=== PATIENT | female | born 2000 | race Caucasian/White ===

== ENCOUNTER 2018-08-08 11:57 | Emergency (ER) | payer BC ==
[2018-08-08 13:38] LABS: ABS Basophils 0 10^3/ul (0-0.2); ABS Eosinophils 0.1 10^3/ul (0-0.6); ABS Lymphocytes 1.6 10^3/ul (1.0-4.8); ABS Monocytes 0.8 10^3/ul (0-0.8); ABS Neutrophils 2.4 10^3/ul (1.5-7.7); ABS Nucleated RBC 0 10^3/ul; Eosinophil % 2.7 % (0-6); Hematocrit 41 % (35-47); Hemoglobin 13.8 g/dl (12.0-16.0); Lymphocyte % 33.2 % (25-47); Mean Corpuscular HGB Conc 34 g/dl (31-36); Mean Corpuscular Hemoglobin 30 pg (27-31); Mean Corpuscular Volume 90 fL (80-97); Mean Platelet Volume 8.9 um3 (7.4-10.4); Nucleated Red Blood Cells % 0.1; Platelet Count 207 10^3/ul (150-450); Red Blood Count 4.55 10^6/ul (4.00-5.40); Red Cell Distribution Width 13 % (10.5-15)
[2018-08-08] MEDS ORDERED: NS 0.9% 1000 ML* 1,000 ML IV ONE (14:05)
--- NOTE | 2018-08-08 14:16 | ED ---
Abdominal Pain/Female - HPI Summary HPI Summary: Patient presents with 4 day history of GI symptoms. She reports she's been taking Bactrim for right axillary staph infection. This antibiotic was started 10 days ago. Her infection here as cleared and antibiotic has been completed. She reports however Tuesday she ate okay around 1900 as well as drink alcohol. She took her Bactrim later in the evening and at 2 AM in the morning she developed nausea, vomiting and diarrhea. He was seen at [facility] yesterday and received IV fluids as well as loperamide. She has not vomited since however continues to feel nauseous. Her diarrhea subsided as well however today it returned despite taking loperamide again at 7 this morning. She is now reporting hematochezia as well. She denies rectal pain however does report abdominal discomfort of 3 out of 10 that cranks up to 7 out of 10 when her cramps start in her lower abdomen. She denies focal pain, urinary symptoms , vaginal symptoms. She denies fevers, chills, headache, chest pain, shortness of breath but she does feel weak in general. She's been able to drink water and chicken broth. She denies sick contacts. - History of Current Complaint Chief Complaint: EDGIBleed Stated Complaint: VOMITING/DIARRHEA/BLOOD IN STOOL Time Seen by Provider: 08/08/18 13:50 Hx Obtained From: Patient, Family/Help Desk Agent - female friend Pain Intensity: 0 Allergies/Adverse Reactions: Allergies Allergy/AdvReac Type Severity Reaction Status Date / Time doxycycline Allergy Rash Verified 08/08/18 12:13 PMH/Surg Hx/FS Hx/Imm Hx Previously Healthy: Yes Endocrine/Hematology History: Denies: Hx Anticoagulant Therapy, Hx Blood Disorders, Hx Diabetes, Hx Thyroid Disease, Hx Anemia, Autoimmune Disease Respiratory History: Denies: Hx Asthma GI History: Denies: Hx Cirrhosis, Hx Crohn's Disease, Hx Diverticulosis, Hx Gall Bladder Disease, Hx Gastroesophageal Reflux Disease, Hx Gastrointestinal Bleed, Hx Hiatal Hernia, Hx Irritable Bowel, Hx Ulcer Infectious Disease History: No Infectious Disease History: Denies: Traveled Outside the [place] in Last 30 Days - Family History Known Family History: Positive: None - Social History Occupation: Student Lives: Dormitory/Roommates Review of Systems Positive: Fatigue - feels wiped out. Negative: Fever, Chills Eyes: Negative ENT: Negative Cardiovascular: Negative Respiratory: Negative Positive: Abdominal Pain, Diarrhea, Nausea. Negative: Vomiting Genitourinary: Negative Negative: burning, dysuria, discharge, frequency, flank pain, hematuria, incontinence, pain, urgency Musculoskeletal: Negative Skin: Negative Neurological: Negative Psychological: Normal All Other Systems Reviewed And Are Negative: Yes Physical Exam Triage Information Reviewed: Yes Vital Signs On Initial Exam: Initial Vitals Temp Pulse Resp BP Pulse Ox 96.8 F 83 17 117/71 100 08/08/18 12:09 08/08/18 12:09 08/08/18 12:09 08/08/18 12:09 08/08/18 12:09 Vital Signs Reviewed: Yes Appearance: Positive: No Pain Distress, Ill-Appearing - mild - good color, Thin Skin: Positive: Warm, Skin Color Reflects Adequate Perfusion, Dry - no rash Head/Face: Positive: Normal Head/Face Inspection Eyes: Positive: Normal, EOMI, Conjunctiva Clear - anicteric sclera ENT: Positive: Normal ENT inspection, Hearing grossly normal, Pharynx normal - mucosa moist. Negative: Nasal congestion, Nasal drainage Neck: Positive: Supple, Nontender Respiratory/Lung Sounds: Positive: Clear to Auscultation, Breath Sounds Present. Negative: Decreased Breath Sounds, Rales, Rhonchi, Wheezes Cardiovascular: Positive: Normal, RRR, S1, S2 Abdomen Description: Positive: No Organomegaly, Soft, Distended, Other: - mild TTP over general lower ab, worse in central area - no rebound tenderness; rectal :?. Negative: CVA Tenderness (R), CVA Tenderness (L), Hernia @ Bowel Sounds: Positive: Present Pelvic Exam: Positive: Other - deferred Musculoskeletal: Positive: Normal, Strength/ROM Intact Neurological: Positive: Normal, Sensory/Motor Intact, Alert, Oriented to Person Place, Time, CN Intact II-III Psychiatric: Positive: Normal Diagnostics - Vital Signs Vital Signs Temp Pulse Resp BP Pulse Ox 08/08/18 12:09 96.8 F 83 17 117/71 100 - Laboratory Lab Results: Lab Results 08/08/18 08/08/18 Range/Units 13:30 13:30 WBC 5.0 (3.5-10.8) 10^3/ul RBC 4.55 (4.00-5.40) 10^6/ul Hgb 13.8 (12.0-16.0) g/dl Hct 41 (35-47) % MCV 90 (80-97) fL MCH 30 (27-31) pg MCHC 34 (31-36) g/dl RDW 13 (10.5-15) % Plt Count 207 (150-450) 10^3/ul MPV 8.9 (7.4-10.4) um3 Neut % (Auto) 48.1 (38-83) % Lymph % (Auto) 33.2 (25-47) % [place] % (Auto) 15.3 H (0-7) % Eos % (Auto) 2.7 (0-6) % Baso % (Auto) 0.7 (0-2) % Absolute Neuts (auto) 2.4 (1.5-7.7) 10^3/ul Absolute Lymphs (auto) 1.6 (1.0-4.8) 10^3/ul Absolute Monos (auto) 0.8 (0-0.8) 10^3/ul Absolute Eos (auto) 0.1 (0-0.6) 10^3/ul Absolute Basos (auto) 0 (0-0.2) 10^3/ul Absolute Nucleated RBC 0 10^3/ul Nucleated RBC % 0.1 Sodium 139 (135-145) mmol/L Potassium 3.9 (3.5-5.0) mmol/L Chloride 104 (101-111) mmol/L Carbon Dioxide 27 (22-32) mmol/L Anion Gap 8 (2-11) mmol/L BUN 5 L (6-24) mg/dL Creatinine 0.71 (0.51-0.95) mg/dL Est GFR ( Amer) 128.3 (>60) Est GFR (Non-Af Amer) 106.0 (>60) BUN/Creatinine Ratio 7.0 L (8-20) Glucose 89 (70-100) mg/dL Calcium 9.2 (8.6-10.3) mg/dL Magnesium Pending Total Bilirubin 0.30 (0.2-1.0) mg/dL AST 21 (13-39) U/L ALT 13 (7-52) U/L Alkaline Phosphatase 44 (34-104) U/L C-Reactive Protein 13.85 H (<8.01) mg/L Total Protein 6.6 (6.4-8.9) g/dL Albumin 4.2 (3.2-5.2) g/dL Globulin 2.4 (2-4) g/dL Albumin/Globulin Ratio 1.8 (1-3) Lipase 10 L (11.0-82.0) U/L TSH Pending Beta HCG, Quant Pending Result Diagrams: 08/08/18 13:30 08/08/18 13:30 Lab Statement: Any lab studies that have been ordered have been reviewed, and results considered in the medical decision making process. Re-Evaluation - Re-Evaluation First Eval Change: Improved - pt's ab pain almost completely resolved. No nausea or vomiting and bowel movements/cramping reduced - feels much better since here. Tried drinking applejuice and reports it went down very well w/o pain, nausea, or urge to move bowels. Abdominal Pain Fem Course/Dx - Course Course Of Treatment: Pt presents w/ 4 days h/o alternating N/V/D. This started about 5 hours after eating poke (raw fish) and a couple of hours after taking bactrim with ETOH. Additionally she admits she was camping a couple of weeks ago and could have exposure to fresh water. She has been gradually improving over the past 2 days but came in today as she had blood in her stool. This was confirmed on stool occult test - rectal exam neg for hemorrhoids, active lower GI bleed. Ab cramping, pain and urge to move bowels resolved after IV fluids only. She was then able to tolerate PO applejuice w/o recurrence of sx. Discussed how a CT scan may be beneficial in providing more information such as colitis but with normal labs and improved sx, we decided to refrain from radiation. We will also refrain from anbx as she may have salmonella and anbx could make this worse (current presenation does not warrant anbx - reduced BM's , no fever, no vomiting). Will call pt w/ stool cx results when they return. In the meantime recommend fluids only and advanving diet as tolerated to BRAT then low residual foods. Discussed importance of monitoring for danger s/sx - pt agrees to return to ED should these present. NOTE: based on labs and vital signs, pt does not appear to have acute/significant hemorrhage as these are WNL. - Diagnoses Provider Diagnoses: Gastroenteritis, Colitis Discharge - Sign-Out/Discharge Documenting (check all that apply): Patient Departure - Discharge Plan Condition: Stable Disposition: HOME Patient Education Materials: Gastroenteritis (ED), Dehydration (ED), Colitis ( ED) Referrals: [facility] - Alpesh VALENCIA [Medical Doctor] - Additional Instructions: The definitive cause of your symptoms was not identified however since her symptoms are improving and diarrhea bouts are reducing, it was decided more aggressive intervention was not necessary today. A stool culture has been collected and results will be back in the next 24-48 hours. He will receive a phone call these are positive however please feel free to call if you've not heard anything in 48 hours. You have been encouraged to rehydrate with water, Gatorade, soup broth, etc. If he tolerates these well, he may advance her diet tomorrow to bananas, rice, applesauce and toast which should also help to further former stools. Avoid stimulants such as coffee, tea, ice tea, soda, chocolate, nicotine, alcohol. Based on your history it is recommended that you avoid Imodium moving forward in the event to do have a bacterial infection as Imodium would trap this in your intestines. We also discussed pros and cons of starting an antibiotic and have decided to refrain until further testing is revealed. *If you develop return of diarrheal frequency, abdominal cramping and pain, vomiting, difficulty eating or drinking, fevers or chills, worsening of bloody stool, return to the emergency department. - Billing Disposition and Condition Condition: STABLE Disposition: Home
[2018-08-08 16:04] LABS: Urine Appearance Clear; Urine Blood Negative (Negative); Urine Color Straw; Urine Ketones Negative (Negative); Urine Protein Negative (Negative); Urine Specific Gravity 1.003 (1.010-1.030); Urine Urobilinogen Negative (Negative)
[2018-08-08 18:02] VITALS: BP 119/58
--- NOTE | 2018-08-09 16:56 | PN ---
Progress Note - Progress Note Date of Service: 08/08/18 Note: Patient organism positive for cryptosporidium In immunologically healthy patients, spontaneous recovery is likely within a few days to weeks No treatment necessary unless diarrhea persists past 2 weeks Patient called on 08/11/18 and patient states she is feeling much better without diarrhea She will not be treated at this time
== END 2018-08-08 18:03 | disposition home or self-care (01) ==
LOC: ED 11:57
DX: K52.9 Noninfective gastroenteritis and colitis, unspecified (principal); R10.9 Unspecified abdominal pain; R11.0 Nausea; R19.7 Diarrhea, unspecified
CPT/HCPCS: 36415; 80053; 81003; 82272; 83605; 83690; 83735; 84443; 84702; 85025; 86140; 87045; 87046; 87177; 87209; 87328; 87329; 87899; 96360; 99283